=== PATIENT | male | born 1970 | race Caucasian/White ===

== ENCOUNTER → 2017-01-08 | Outpatient (CLI) | payer MEDICARE, BC ==
[2017-01-08 13:25] LABS: CHLORIDE,CL 106 mmol/L (98-110); SODIUM,NA 142 mmol/L (136-146)
== END | disposition home or self-care (01) ==
LOC: MW.CHNEURO 12:17
PROVIDERS: ATTEND Psychiatry & Neurology Neuromuscular Medicine
DX: G35 Multiple sclerosis (principal); R53.82 Chronic fatigue, unspecified; M54.5 Low back pain
CPT/HCPCS: 36415; 80053; 85025; 99215

== ENCOUNTER 2017-02-20 12:55 | Day surgery (SDC) | payer BC, MEDICARE ==
[~2017-02-20 12:55] MED LIST: Betamethasone Acetate/Betamethasone Sod Phosphate 30 MG/5 ML MDV ONE; Iopamidol 408 MG/ML 50 ML SDV ONE; Lidocaine 2% 5 ML SDV ONE; Ropivacaine 0.5% 5 MG/ML 30 ML SDV ONE
--- NOTE | 2017-03-09 00:16 | OR ---
SURGEON: Sheila Marlow D.O. DATE OF PROCEDURE: 02/20/2017 OR STAFF PRESENT: 1. Dwaine Zayas RN. 2. Krysten Driscoll RN. TOOL DESIGN ENGINEER: Alyson Andrade. WOUND CLASSIFICATION: I. PREOPERATIVE DIAGNOSIS: Right hip joint pain and MS. POSTOPERATIVE DIAGNOSIS: Right hip joint pain and MS. PROCEDURE PERFORMED: 1. Right intraarticular hip injection therapy. 2. Fluoroscopic guidance for needle placement. 3. Local with oral Valium for sedation. SCREENING QUESTIONS: The patient answered "No" to all the following questions: 1. Are you allergic to iodine, Betadine, or latex? 2. Do you have a bleeding disorder? 3. Do you have any joint replacements, heart valve replacements or a pacemaker? 4. Are you allergic to anti-inflammatories? 5. Are you on any blood thinners? 6. Do you have any current local or systemic infections? DESCRIPTION OF PROCEDURE: The patient had the procedure thoroughly explained including all possible risks, benefits and alternatives. Consent was signed in my clinic indicating understanding and willingness to proceed. The patient presented to [facility] and was escorted to the dressing room to disrobe and change into a hospital gown. Preoperative vital signs were taken and stable. The patient reported that Valium was taken prior to the procedure. The patient was brought to the procedure room and placed in the supine position on the procedure room table. The hip landmarks were identified for the intra- articular injection and the femoral pulse was palpated and marked. The skin was marked assisted between the femoral pulse and greater trochanter for a skin wheal. The skin was sterilely prepped with ChloraPrep and draped. All personnel in the operating room were dressed in appropriate attire including surgical scrubs, head and shoe covers. This was to ensure sterility while in the treatment room. During the time fluoroscopy was in use, all personnel in the operating room wore lead smith with thyroid collars. Sterile technique was used during the procedure. The fluoroscope was placed for the intra-articular hip injection. There were no signs of infection at the site for needle insertion. The skin was anesthetized with 2% Lidocaine with a 27-gauge 1.5 inch needle. Then using a 22-gauge 3.5 inch spinal needle, I advanced to the capsule of the hip joint, a pop was felt. Under direct fluoroscopic guidance verifying needle positioning, 0.2 cubic centimeters increments of IsoVue-200 dye was injected and shown to outline the intra-articular space. No intravascular flow pattern was observed under live fluoroscopy. After negative aspiration, a mixture of 0.5% Ropivacaine, 2% Lidocaine, and 12 milligrams of Celestone was slowly injected in small increments after negative aspiration of heme. No paresthesias were noted. The needle was cleared prior to removal from the skin and no adverse reactions were noted. The patient was then brought to the recovery room awake and in good condition by my staff. After a brief stay in the recovery room, the patient was discharged to home. Both oral and written discharge and followup instructions were given to the patient. The patient will follow up in the clinic in two to three weeks postprocedure to evaluate the efficacy. The patient verbalized understanding including understanding those signs and symptoms that would require emergency care and knows how to contact the office if there are any problems or questions in the meantime. PREOPERATIVE PAIN: 4+/10. POSTOPERATIVE PAIN: 2/10. FOLLOWUP: Followup in the Pain Clinic in 3 weeks. DARLEEN / ANISH /[id number]
== END 2017-02-20 14:50 | disposition home or self-care (01) ==
LOC: MW.SDS 12:55
PROVIDERS: ATTEND Anesthesiology
DX: M25.551 Pain in right hip (principal); F41.9 Anxiety disorder, unspecified; F32.9 Major depressive disorder, single episode, unspecified; I10 Essential (primary) hypertension; G35 Multiple sclerosis; Z87.891 Personal history of nicotine dependence; Z98.52 Vasectomy status; Z79.899 Other long term (current) drug therapy; M51.36 Other intervertebral disc degeneration, lumbar region
CPT/HCPCS: 20610; J0702; J2795; Q9966

== ENCOUNTER → 2017-03-14 | Outpatient (CLI) | payer MEDICARE, BC | LOC: MW.CHPM 08:00 | PROVIDERS: ATTEND Anesthesiology | DX: M51.36 Other intervertebral disc degeneration, lumbar region (principal); G35 Multiple sclerosis; M54.5 Low back pain; M25.551 Pain in right hip | CPT/HCPCS: 99214 ==

== ENCOUNTER → 2017-03-21 | Outpatient (CLI) | payer MEDICARE, BC ==
--- NOTE | 2017-03-23 16:49 | MR ---
EXAM DATE: 03/21/17 PATIENT'S AGE: 46 Patient: DELIA HERNANDEZ Facility: [facility] Site Site : [id number] Study: MRI-Spine Thoracic [id number] 2:17:50 PM Ordering Physician: FLETCHER MYLES Final Report: INDICATION: 46-year-old male. Multiple sclerosis. Low back pain. Disc degeneration. Technique: T1-T2 and STIR sagittal images with multilevel T2 axial acquisitions. Findings: Morphology of the spinal cord is normal. There is subtle T2 intra medullary T2 hyperintensity at T3-4. Dorsal margins of the disc spaces are unremarkable. Dorsal margins of the thoracic disc spaces are unremarkable. There is no central or foraminal stenosis. T10-11 through T12-L1: Small multilevel Schmorl nodes and minor anterior marginal spurring. Dorsal epidural fat is intact. Impression: 1. Focal T2 prolongation the spinal cord at T3-4 is compatible history of multiple sclerosis. 2. No central or foraminal stenosis. 3. Minor multilevel anterior marginal spurring and/or Schmorl node. 4. Dorsal epidural fat planes are intact. Dictated by Sabas Quevedo MD @ Mar 23 2017 2:41PM Signed by: Sabas Quevedo MD @03/23/2017 2:41:42 PM (Electronic Signature) Report Signed by Proxy. [facility]IDE HOSPITALFidel
--- NOTE | 2017-05-07 11:38 | BHI ---
SERVICE DATE: PATIENT #: [id number] #: NOT DICTATED IDENTIFICATION: Long is a 46-year-old male, who is here today for an evaluation for his spinal cord stimulator. He was referred to me by Dr. Marlow. CURRENT MEDICATIONS: Include amitriptyline 50 mg a day, baclofen 10 mg in the morning and 20 mg at bedtime, Cymbalta 30 mg at bedtime, gabapentin 200 mg t.i.d., hydrocodone 5/325 p.r.n., lisinopril 10 mg a day, metoprolol 50 mg a day, and modafinil 200 mg b.i.d. ALLERGIES: He has no known allergies to medications. CHIEF COMPLAINT: "I am sick of pain pills". HISTORY OF PRESENT ILLNESS: Long states that he is here today for evaluation for a spinal cord stimulator. He said if he could get rid of his pain pills, he said that would be the best. He does not like taking them. He says they do not make him feel very well after he takes them. He does state that he has always been a worrier and he has some stressors right now that have been bothering him. His nephew who has been staying at his place, he had to tell him to leave. He has also got MS and he has had that for about 18 years but diagnosed five years ago, and his son is going through a divorce. So, those stressors really way on him. Symptoms that he significantly endorses are trouble sleeping, low energy, trouble concentrating, sometimes he feels hopeless, sometimes he feels sad, does not enjoy things, feels like a failure, loss of interest, difficulty making decisions, disappointment in himself, dizziness unsteady feelings, hot flushes, fear of going crazy or losing control, fear of being embarrassed or humiliated, fears of speaking in public situations, persistent ideas he cannot get out of his mind, recurrent thoughts, sometimes he feels socially withdrawn, thoughts about how his life has changed permanently, sometimes he has outbursts of irritability and anger, worries a lot, worries about money, sometimes he has twitching, trembling, muscle tension, aches and pains, restlessness, tires easily. He states that he started the Cymbalta about 5 or 6 months ago but he really has not seen any benefit with it. I suggested to him today that whoever prescribed it could maybe consider going up on the dose a little bit and that was prescribed by his primary care in [place]. He does state that occasionally he has had passive suicidal thoughts, but he said no different than everyone else. He has never had a plan, never had any intent to do anything. He has not ever had a suicide attempt in the past. His chronic pain is also a big issue for him. He has back and hip pain. Hydrocodone makes him nauseated, so he would like to get the spinal cord stimulator if it would work for him. PAST PSYCHIATRIC HISTORY: He has had a history of some depression and anxiety, never been hospitalized, and never had a suicide attempt. PAST MEDICATIONS: He has tried Zoloft which did not help. Seroquel helped quite a bit and actually worked the best for him as far as sleep. SOCIAL HISTORY: Born in [place], raised in [place]. When he was quite young, at about the age of 11, his dad had an aneurysm and was disabled in a residential for the rest his life. He has 2 brothers and 2 sisters. He has his GED with some college. He was the first time for about a year and the second time now for 16 years. He is currently on disability with his MS. He has never been in the . Children, he has a 26-year-old son in [place], a 21-year-old daughter in [place], a 19-year-old daughter in [place], and an 18-year-old daughter in [place]. FAMILY HISTORY: He thinks his aunt has some issues, but he said he really does not know, he is not close to the family, and people do not talk about it. So, he is not sure about that. CHEMICAL USAGE HISTORY: He denies using any alcohol or drugs of any kind. MEDICAL HISTORY: His primary care provider is Ramonita Bal at the [facility]. His only hospitalization that he remembers is when he got a plasma transfusion for his MS. He has never had a surgery. REVIEW OF SYSTEMS: ALLERGY/IMMUNE: He denies problems. CARDIOVASCULAR: Denies problems. RESPIRATORY: He does wear out fast but he thinks it is because of his MS. EARS NOSE AND THROAT: Denies any problems. EYES: He does have some issues with his eyes. GASTROINTESTINAL: Denies problems GENITOURINARY: Denies problems. MUSCULOSKELETAL: Chronic back and hip pain. NEUROLOGICAL: He has multiple sclerosis and he says he does fall quite a bit. ENDOCRINE: He denies problems. INTEGUMENTARY/HEMATOLOGY: Denies problems in any of those areas. CONSTITUTIONAL: Denies any recent illnesses, fevers, or unexplained weight loss. PHYSICAL EXAMINATION: VITAL SIGNS: Blood pressure is 116/81, heart rate 79, respirations 16, temperature is 98.3, height is 72 inches. Weight is 225.4 pounds. GENERAL APPEARANCE: Long is a very pleasant young man who ambulates independently but his gait is slightly unsteady. He does not use a cane. He is well developed, well nourished, well groomed, and he appears about his stated age. Muscle strength and tone appears equal bilaterally and gait and station again are somewhat unsteady. PSYCH: His speech is slightly slurred but easy to understand and it is appropriate in content. Thought processes are logical and linear, I do not see any pressured speech or tangential speech. He denies any hallucinations, suicidal or homicidal ideation, and I do not see any delusions. He said his mood is so-so and his affect is pleasant. Insight and judgment, I think, are good. Eye contact is good. MENTAL STATUS EXAM: He is alert and oriented x3. Recent and remote memory appear intact. Attention span appears good. Language is good. Fund of knowledge appears adequate for his developmental age. DIAGNOSES: Ridge I: Anxiety F41.8; depression F32.9. Ridge II: No diagnosis. Ridge III: Chronic back and hip pain. He also has multiple sclerosis. Ridge IV: Stressors, is his health, his multiple sclerosis, his chronic pain, nephew, and he has a son that he is stressed out with Ridge V: Current Global Assessment of Functioning score 68. TREATMENT PLAN: If the spinal cord stimulator would work for him, I think that would be a good idea for him. I believe he is stable, he appears psychiatrically stable at this time, and as far as his anxiety and depression, I would suggest that his primary care provider may consider increasing the Cymbalta to 60 mg a day. Long verbalized good understanding of what the spinal cord stimulator is about and the only recommendation I would make is to try a larger dose of the Cymbalta and see if he can get a little bit more benefit he does have some depression and anxiety that still lingers. /[id number]
== END ==
LOC: MW.MRI 13:33
PROVIDERS: ATTEND Anesthesiology
DX: M51.36 Other intervertebral disc degeneration, lumbar region (principal); G35 Multiple sclerosis; M54.5 Low back pain
CPT/HCPCS: 72146; 72146-26

== ENCOUNTER 2017-06-12 12:04 | Day surgery (SDC) | payer BC, MEDICARE ==
[~2017-06-12 12:04] MED LIST changes: -Betamethasone Acetate/Betamethasone Sod Phosphate 30 MG/5 ML MDV ONE; -Iopamidol 408 MG/ML 50 ML SDV ONE; -Ropivacaine 0.5% 5 MG/ML 30 ML SDV ONE
[2017-06-12] MEDS ORDERED: ceFAZolin 1 GM in Premix Bag 1 BAG IV ONE (12:17)
--- NOTE | 2017-06-12 12:48 | PCM.PREANE ---
Preanesthetic Assessment - Anesthesia/Transfusion/Family Hx Anesthesia History: Prior Anesthesia Without Reaction Other Type of Anesthesia Reaction Comment: "mother had a hard time coming out of anesthesia" Family History of Anesthesia Reaction: No Transfusion History: No Prior Transfusion(s) Intubation History: Unknown - Review of Systems General: No Symptoms Pulmonary: No Symptoms Cardiovascular: No Symptoms Gastrointestinal: No symptoms Neurological: Numbness, Paresthesia Other: Reports: None - Physical Assessment Height: 1.83 m Weight: 100.244 kg ASA Class: 3 Mental Status: Alert & Oriented x3 Airway Class: Mallampati = 2 Dentition: Reports: Normal Dentition, Bridge (left lower- fixed) Thyro-Mental Finger Breadths: 3 Mouth Opening Finger Breadths: 2 ROM/Head Extension: Full Lungs: Clear to auscultation, Normal respiratory effort Cardiovascular: Regular Rate, Regular Rhythm - Allergies Allergies/Adverse Reactions: Allergies Allergy/AdvReac Type Severity Reaction Status Date / Time No Known Allergies Allergy Verified 06/08/17 13:41 - Blood Blood Available: No - Anesthesia Plan Pre-Op Medication Ordered: None - Acknowledgements Anesthesia Type Planned: MAC Pt an Appropriate Candidate for the Planned Anesthesia: Yes Alternatives and Risks of Anesthesia Discussed w Pt/Guardian: Yes Pt/Guardian Understands and Agrees with Anesthesia Plan: Yes PreAnesthesia Questionnaire HEENT History: Reports: Other (See Below) Other HEENT History: wears glasses Cardiovascular History: Reports: Hypertension Genitourinary History: Reports: None Musculoskeletal History: Reports: Back Pain, Chronic Neurological History: Reports: Migraines, MS (secondary progressive) Psychiatric History: Reports: Anxiety, Depression Endocrine/Metabolic History: Reports: Obesity/BMI 30+ - Past Surgical History Head Surgeries/Procedures: Reports: None Male Surgical History: Reports: Vasectomy - SUBSTANCE USE Smoking Status *Q: Former Smoker (quit 2 1/2 years ago) Recreational Drug Use History: No - HOME MEDS Home Medications: Home Meds Amitriptyline HCl 50 mg PO BEDTIME 06/08/17 [History] Baclofen 10 mg PO ACBREAKFAST 06/08/17 [History] Baclofen 20 mg PO BEDTIME 06/08/17 [History] DULoxetine HCl [Duloxetine HCl] 2 tab PO DAILY 06/08/17 [History] Dimethyl Fumarate [Tecfidera] 240 mg PO BID 06/08/17 [History] Folic Acid 1 mg PO DAILY 06/08/17 [History] Gabapentin [Neurontin] 2 tab PO TID 06/08/17 [History] Hydrocodone/Acetaminophen [Hydrocodon-Acetaminophen 5-325] 1 tab PO ASDIRECTED PRN 06/08/17 [History] Lisinopril 10 mg PO DAILY 06/08/17 [History] Metoprolol Tartrate 50 mg PO DAILY 06/08/17 [History] Modafinil 200 mg PO BID 06/08/17 [History] - CURRENT (IN HOUSE) MEDS Current Meds: Current Medications Discontinued Medications Cefazolin Sodium/Dextrose 1 gm (/ Premix) 50 mls @ 100 mls/hr IV ONETIME ONE Stop: 06/12/17 12:46 Lidocaine (Xylocaine-Mpf 2%) Confirm Administered Dose 10 ml .ROUTE .STK-MED ONE Stop: 06/12/17 11:47 Lidocaine HCl (Xylocaine-Mpf 1%) Confirm Administered Dose 10 ml .ROUTE .STK- MED ONE Stop: 06/12/17 11:47
[2017-06-12] MEDS ORDERED: fentaNYL 100 MCG/2 ML SDV ONE (14:24)
[2017-06-12] MEDS ORDERED: Propofol 200 MG/20 ML SDV ONE (14:24)
[2017-06-12] MEDS ORDERED: Midazolam 1 MG/ML 2 ML SDV ONE (14:25)
--- NOTE | 2017-06-12 15:48 | PCM48HPAN ---
Post Anesthesia Note - EVALUATION WITHIN 48HRS OF ANESTHETIC Vital Signs in Normal Range: Yes Patient Participated in Evaluation: Yes Respiratory Function Stable: Yes Airway Patent: Yes Cardiovascular Function Stable: Yes Hydration Status Stable: Yes Pain Control Satisfactory: Yes Nausea and Vomiting Control Satisfactory: Yes Mental Status Recovered: Yes - COMMENTS/OBSERVATIONS Free Text/Narrative:: no anesthesia problems. Patient skipped recovery room postoperative care phase.
--- NOTE | 2017-06-12 17:15 | CR ---
EXAMINATION: Thoracic spine HISTORY: Low back pain COMPARISON: MRI dated 03/21/2017 TECHNIQUE: 5 fluoroscopic images provided. FINDINGS/IMPRESSION: Operative control films demonstrate a single spinal stimulator lead projecting over the mid to lower thoracic spine from T7 to T9.
--- NOTE | 2017-06-12 23:42 | OR ---
SURGEON: Sheila Marlow D.O. DATE OF PROCEDURE: 06/12/2017 OR STAFF PRESENT: 1. Anabella Mo RN. 2. Sofiya Preston RN. 3. Natalia Moore, GRETCHEN. PARTS WASHER: RT Lynda. WOUND CLASSIFICATION: I. PREOPERATIVE DIAGNOSES: 1. Central pain syndrome. 2. Chronic Low back pain with right lower extremity radiculopathy. 3. Multiple sclerosis. 4. Chronic pain syndrome. POSTOPERATIVE DIAGNOSES: 1. Central pain syndrome. 2. Chronic Low back pain with right lower extremity radiculopathy. 3. Multiple sclerosis. 4. Chronic pain syndrome. PROCEDURE PERFORMED: 1. [employer] Infinion 16, 50 cm, 16 contact trial lead placed to the top of T7 on the right. 2. Fluoroscopic guidance for needle placement. 3. Local with oral Valium for sedation. ANESTHESIA: MAC. Jolanta Rojas CRNA. SCREENING QUESTIONS: The patient answered no to all the following questions: 1. Are you allergic to iodine, Betadine, or latex? 2. Do you have a bleeding disorder? 3. Are you on anti-inflammatories or blood thinners? 4. Are you ? 5. Do you have any current local or systemic infections? 6. Do you have any joint replacements, heart valve replacements or a pacemaker? DESCRIPTION OF PROCEDURE: The patient had the procedure thoroughly explained including risks, benefits, and alternatives. Consent was signed in my clinic indicating understanding and willingness to proceed. The patient presented to [facility] and was escorted to the dressing room to disrobe and change into a hospital gown. Preoperative history and screening were performed by the nurse. Vital signs were taken and stable. The patient was set up with an IV prior to the procedure. The patient was brought back to the procedure room and placed in the prone position on the procedure room table. A pillow was placed under the abdomen in order to flatten the lumbar lordosis. The patient was positioned comfortably and there was no evidence of infection at the sites of needle insertion. The back was prepped with ChloraPrep and sterilely draped. All personnel in the operating room were dressed in appropriate attire including surgical scrubs, head and shoe covers. This was to ensure sterility while in the treatment room. During the time fluoroscopy was in use, all personnel in the operating room wore lead smith with thyroid collars. Sterile technique was used during the procedure. Prior to the start of the procedure, prophylactic antibiotic was administered IV. Skeletal landmarks were identified under fluoroscopic guidance. At all insertion sites, the skin and soft tissues were anesthetized with 2% lidocaine preservative-free with a sterile 27-gauge 1-1/2 inch needle. The epidural space was entered with a 14-gauge Tuohy epidural needle with loss-of- resistance to wire technique. Under live fluoroscopic guidance, the 16 standard contact lead electrodes were advanced approximately to the right thumb midline at the top of the T7 vertebral body on the right. No CSF, no heme, no paresthesia were noted. The lead was placed in the posterior epidural space and verified by AP and lateral fluoroscopy. Testing by the [employer] neuromodulation clinical specialist revealed appropriate coverage of the patient's normal areas of pain. The lead was then secured to the skin with occlusive dressing. No complications were noted throughout the procedure and vital signs were stable. Then the patient was brought to the recovery room in stable condition. At that time, the patient had additional stimulation patterns programmed which covered all of his normal areas of pain. The patient tolerated the procedure well and was released home with postoperative instructions for followup in the clinic. The patient will fill out a pain diary throughout the week of the spinal cord stimulator trial. Additionally, prior to discharge, postoperative instructions were given to the patient and the patient voiced understanding, including understanding of those signs and symptoms that would require emergency care. PREOPERATIVE PAIN: 8/10. POSTOPERATIVE PAIN: 1/10. PLAN: Followup in Pain Clinic in the morning with pain diary to assist efficacy of spinal cord stimulation trial and for re-programming. DARLEEN / ANISH /[id number]
== END 2017-06-12 16:17 | disposition home or self-care (01) ==
LOC: MW.SDS 12:04
PROVIDERS: ATTEND Anesthesiology
DX: G89.4 Chronic pain syndrome (principal); M54.16 Radiculopathy, lumbar region; G35 Multiple sclerosis; F41.9 Anxiety disorder, unspecified; F32.9 Major depressive disorder, single episode, unspecified; Z79.899 Other long term (current) drug therapy; Z98.52 Vasectomy status; Z87.891 Personal history of nicotine dependence
CPT/HCPCS: 63685; 76000; C1778; J0690; J2250; J3010; 01936; 63650; J2704